=== PATIENT | female | born 1940 | race Caucasian/White ===

== ENCOUNTER → 2018-01-10 07:31 | Outpatient (CLI) | payer MEDICARE, BC ==
[2016-06-07 12:49] VITALS: BMI 21.0
[~2018-01-10 07:31] MED LIST: NORVASC2.5 MG; WELLBUTRIN75 MG
== END | disposition home or self-care (01) ==
LOC: D.RT 01-01 10:00 → D.RAD 01-01 11:00 → D.RT 07:31
DX: J44.9 Chronic obstructive pulmonary disease, unspecified (principal)

== ENCOUNTER → 2018-05-22 10:51 | Outpatient (CLI) | payer MEDICARE, BC ==
[2016-06-07 12:49] VITALS: BMI 21.0
== END | disposition home or self-care (01) ==
LOC: D.CT 10:51
DX: I73.9 Peripheral vascular disease, unspecified (principal)

== ENCOUNTER → 2018-06-24 09:31 | Outpatient (CLI) | payer MEDICARE, BC ==
[2016-06-07 12:49] VITALS: BMI 21.0
== END | disposition home or self-care (01) ==
LOC: D.US 09:31
DX: I65.23 Occlusion and stenosis of bilateral carotid arteries (principal)

== ENCOUNTER → 2018-07-10 07:13 | Outpatient (CLI) | payer MEDICARE, BC ==
[2016-06-07 12:49] VITALS: BMI 21.0
== END | disposition home or self-care (01) ==
LOC: D.CT 07:13
DX: I65.23 Occlusion and stenosis of bilateral carotid arteries (principal)

== ENCOUNTER 2018-08-20 14:17 | Inpatient (IN) | payer MEDICARE, BC ==
[~2018-08-20] VITALS: Ht 157.5 cm; Wt 58.6 kg
--- NOTE | ~2018-08-20 | HEMODYNAMI ---
PATIENT:SALAZAR TEJEDA MEDICAL RECORD: [id number] : 36 LOCATION:LO DEverCV01 ADMISSION DATE: 08/29/18 Generatedon:09/03/201815:44 Patient name: SALAZAR TEJEDA Patient #: [id number] SSN: : Date of study: 09/03/2018 Page: Of Hemodynamic Procedure Report Patient Data Patient Demographics Procedure consent was obtained First Name: SALAZAR Gender: Female Last Name: ILEANA : 1940 [facility] Initial: VIRGEN Age: 78 year(s) Patient #: [id number] Race: Unknown Additional ID: [id number] Contact details Address: [address] [place] [address] State: [place] City: [place] Zip code: [address] Past Medical History Allergies: No known allergies Admission Admission Data Admission Date: 08/29/2018 Admission Time: 5:00 Room #: [facility] Procedure Procedure Types Cath Procedure Peripheral Cath Diagnostic Procedure Abd/Extremity Extremities Procedure Description Procedure Date Procedure Date: 09/03/2018 Procedure Start Time: 14:21 Procedure Staff Name Function Romel Pavon RT Monitor Alf Hi MD Performing Physician Roopa Davis Scrub Jaylene Dixon RN Nurse Procedure Data Cath Procedure Fluoroscopy Diagnostic fluoroscopy Total fluoroscopy Time: time: 11.78 min 11.78 min Diagnostic fluoroscopy Total fluoroscopy dose: 67 dose: 67 mGy mGy Contrast Material Contrast Material Type Amount (ml) Isovue 300 65 Entry Location Entry Primary Successful Side Size Upsize Upsize Entry Closure Succes sful Closure Location (Fr) 1 (Fr) 2 (Fr) Remarks Device Remarks Femoral Left 6 Fr Exoseal artery Short Procedure Medications Medication Administration Route Dosage Heparin Flush Bag added to field 3 bags (1000units/500ml NS) Lidocaine 1% added to field 20 Oxygen etCO2 Nasal cannula 3 l/min Nitroglycerin IC/IA I.A. 200 mcg Heparin Bolus I.V. 2500 units Heparin Bolus I.V. 1000 units Hemodynamics Rest Heart Rate: 89 (bpm) Snapshots Pre Cath Intra NCS Post Cath Vital Signs Time Heart Resp SPO2 etCO2 NIBP (mmHg) Rhythm Pain Sedation Rate (ipm) (%) (mmHg) Status Level (bpm) 14:01:57 12 100 11.3 167/74(117) NSR 0 (11) 10(A) , No pain 14:06:13 92 24 100 9.7 151/70(115) NSR 0 (11) 10(A) , No pain 14:10:31 93 46 100 15 146/69(108) NSR 0 (11) 10(A) , No pain 14:14:49 88 19 99 27.8 135/60(102) NSR 0 (11) 10(A) , No pain 14:16:23 89 21 99 27.1 133/58(108) NSR 0 (11) 10(A) , No pain 14:20:37 88 29 99 28.6 135/61(97) NSR 0 (11) 10(A) , No pain 14:22:53 89 21 99 12.7 122/58(93) NSR 0 (11) 10(A) , No pain 14:25:02 88 23 99 24.8 133/58(95) NSR 0 (11) 10(A) , No pain 14:27:17 87 20 99 27.8 133/56(87) NSR 0 (11) 10(A) , No pain 14:29:32 86 25 99 27.1 124/58(94) NSR 0 (11) 10(A) , No pain 14:31:43 87 30 99 29.3 129/57(86) NSR 0 (11) 10(A) , No pain 14:33:58 88 23 98 31.6 121/54(87) NSR 0 (11) 10(A) , No pain 14:36:09 88 18 98 28.6 124/52(84) NSR 0 (11) 10(A) , No pain 14:38:22 89 19 98 29.3 122/53(93) NSR 0 (11) 10(A) , No pain 14:40:33 86 30 98 31.6 124/55(88) NSR 0 (11) 10(A) , No pain 14:42:47 88 36 98 30.1 122/53(90) NSR 0 (11) 10(A) , No pain 14:44:58 90 26 98 30.1 122/55(92) NSR 0 (11) 10(A) , No pain 14:47:11 87 41 97 31.6 116/53(87) NSR 0 (11) 10(A) , No pain 14:49:22 86 22 97 30.1 119/51(97) NSR 0 (11) 10(A) , No pain 14:51:35 84 20 96 33.1 106/46(86) NSR 0 (11) 10(A) , No pain 14:53:42 75 20 96 31.6 112/47(82) NSR 0 (11) 10(A) , No pain 14:55:53 85 20 96 33.9 121/48(88) NSR 0 (11) 10(A) , No pain 14:58:06 84 20 96 34.6 120/48(82) NSR 0 (11) 10(A) , No pain 15:00:17 83 20 96 36.1 114/51(70) NSR 0 (11) 10(A) , No pain 15:02:26 82 20 96 33.1 113/53(91) NSR 0 (11) 10(A) , No pain 15:04:38 88 23 97 29.3 112/48(78) NSR 0 (11) 10(A) , No pain 15:06:46 86 17 97 44.4 120/51(83) NSR 0 (11) 10(A) , No pain 15:08:58 80 20 97 28.6 104/50(83) NSR 0 (11) 10(A) , No pain 15:11:05 81 18 97 36.1 111/48(76) NSR 0 (11) 10(A) , No pain 15:13:12 81 19 97 31.6 104/52(77) NSR 0 (11) 10(A) , No pain 15:15:14 82 19 97 35.3 123/58(90) NSR 0 (11) 10(A) , No pain 15:17:28 81 18 96 36.1 115/51(86) NSR 0 (11) 10(A) , No pain 15:19:37 78 17 96 33.8 107/51(84) NSR 0 (11) 10(A) , No pain 15:21:46 80 17 96 34.6 105/46(83) NSR 0 (11) 10(A) , No pain 15:23:53 78 17 95 36.1 106/48(81) NSR 0 (11) 10(A) , No pain 15:26:00 77 19 95 31.6 103/46(85) NSR 0 (11) 10(A) , No pain 15:28:07 78 18 94 33.1 99/44(69) NSR 0 (11) 10(A) , No pain 15:30:12 76 18 95 33.8 101/46(76) NSR 0 (11) 10(A) , No pain 15:32:19 75 17 95 29.3 98/46(73) NSR 0 (11) 10(A) , No pain 15:34:23 76 18 95 32.3 103/48(75) NSR 0 (11) 10(A) , No pain 15:36:30 75 17 95 33.1 103/46(78) NSR 0 (11) 10(A) , No pain 15:38:35 80 20 96 35.3 104/50(83) NSR 0 (11) 10(A) , No pain 15:40:40 80 17 97 32.3 114/54(91) NSR 0 (11) 10(A) , No pain 15:42:49 84 14 94 0 127/58(99) NSR 0 (11) 10(A) , No pain Medications Time Medication Route Dose Verified Delivered Reason Notes Eff ectiveness by by 14:11:15 Heparin Flush added 3 Alf Milner used for Bag to bags Sussy Hi procedure (1000units/500ml field MD RESENDIZ NS) 14:11:25 Lidocaine 1% added 20ml Alf Milner for local to vial Sussy Hi anesthetic field MD RESENDIZ 14:11:40 Oxygen etCO2 3 Alf Mariee used for Nasal l/min Sussy Dixon RN procedure cannula 14:30:47 Heparin Bolus I.V. 2500 Alf Mariee units Sussy Dixon RN, MD 15:00:45 Nitroglycerin I.A. 200 Alf Milner Per IC/IA [facility] Sussy Hi physician MD RESENDIZ 15:01:19 Heparin Bolus I.V. 1000 Alf Aguileraody units Sussy Dixon RN, MD Procedure Log Time Note 13:50:57 Romel Pavon RT (R) (CV) sent for patient. Start room use. 13:50:57 Clark Laurent CAN TECHNICIAN here for Tiva 13:51:00 Time tracking: Regular hours (M-F 7:00 - 5:00) 13:51:05 Plan of Care:Hemodynamics will remain stable., Cardiac rhythm will remain stable., Comfort level will be maintained., Respiratory function will remain adequate., Patient/ family verbilizes understanding of procedure., Procedure tolerated without complication., Recovers from procedure without complications.. 13:52:59 Patient received from CVICU to IR Alert and oriented. Tansferred to table in Supine position. 13:53:04 Use device set IR Diagnostic 13:53:06 Tegaderm 4 x 4 (1626W) opened to sterile field. 13:53:06 Sterile Angiographic Pack opened to sterile field. 13:53:06 Bag Decanter (2002S) opened to sterile field. 13:53:15 Warm blankets applied, and michelle hugger turned on for patient comfort. 13:53:16 Correct patient and procedure confirmed by team. 13:53:27 Signed procedure consent form obtained from patient. 13:53:28 ECG and BP/O2 sat monitors applied to patient. 13:53:29 Full Disclosure recording started 13:53:30 - 13:53:34 H&P Date Dictated: 09/03/2018 Within 30 days and on chart.. 13:53:36 Pre-op teaching completed and patient verbalized understanding. 13:53:36 Pre-procedure instructions explained to patient. 13:53:38 Family in waiting room. 13:53:40 Patient NPO since Midnight. 13:54:07 - 13:54:23 SEE ANESTHESIA NOTE FOR PRE TIVA PROCEDURE 13:54:34 Left groin area was prepped with chlora-prep and draped in sterile fashion 13:54:35 Alarms reviewed by R. N. 13:54:36 Sharps counted by scrub and verified by R.N. 14:00:43 Vital chart was started 14:09:22 BENTSON 145cm wire ([id number]) opened to sterile field. 14:09:22 Cordis 6Fr BRITE TIP 11cm sheath opened to sterile field. 14:11:15 Heparin Flush Bag (1000units/500ml NS) 3 bags added to field was administered by Alf Hi MD; used for procedure; 14:11:25 Lidocaine 1% 20ml vial added to field was administered by Alf sweeney MD; for local anesthetic; 14:11:40 Oxygen 3 l/min etCO2 Nasal cannula was administered by Jaylene Dixon RN ; used for procedure; 14:13:38 Baseline sample Acquired. 14:19:15 Physician arrived 14:19:17 --------ALL STOP TIME OUT------ 14:19:18 Final Timeout: patient, procedure, and site verified with staff and physician. All members of the team are in agreement. 14:19:22 Left groin site verified by team. 14:19:51 Fire Safety Assessment: A--An alcohol-based skin anteseptic being used preoperatively., C--Open oxygen or nitrous oxide is being used. 14:19:56 Sedation plan: IV Moderate Sedation Medication:Propofol 14:21:43 Procedure started. 14:21:56 Local anesthetic to left femerol artery with Lidocaine 1% by Alf Hi MD.INITIAL ACCESS ONLY 14:21:58 Access obtained with 4Fr micropunture. 14:22:28 A 6 Fr Short sheath was inserted into the Left Femoral artery 14:22:34 Micropuncture VSI 4FR kit opened to sterile field. 14:22:35 Cordis 6Fr BRITE TIP 11cm sheath opened to sterile field. 14:30:00 CXI Catheter 90cm (K49005) opened to sterile field. 14:30:00 ROADRUNNER .035 145 glide wire ([id number]) opened to sterile field. 14:30:47 Heparin Bolus 2500 units I.V. was administered by Jaylene Dixon RN; ; 14:32:06 INFLATOR BasixTOUCH (CQ4033) opened to sterile field. 14:38:05 CHOICE PT Extra Support J 300cm guide wire ([id number]) opened to steril e field. 14:41:02 Hawkone Medium Atherectomy System (H1-M) opened to sterile field. 14:42:45 COPILOT Valve Control ([id number]) opened to sterile field. 14:50:47 Inflate balloon Inflation number: 1 A Gilchrist Plus 2 x 6 x 130 Balloon ([id number]) was prepped and advanced across the Undefined1, then inflated to 8 ABDIFATAH for 0:50 (min:sec). 15:00:45 Nitroglycerin IC/IA 200 mcg I.A. was administered by Alf Hi MD; Per physician; 15:01:19 Heparin Bolus 1000 units I.V. was administered by Jaylene Dixon RN; ; 15:15:19 Inflate balloon Inflation number: 1 A IN.PACT Admiral 5 x 120 x 130 DCB Balloon ([id number]) was prepped and advanced across the Distal Superficial Femoral, Left, then inflated to 9 ABDIFATAH for 2:42 (min:sec). 15:23:44 Inflate balloon Inflation number: 1 A CHOCOLATE 3.0 x 120 x 150 balloon ([id number]) was prepped and advanced across the Mid Anterior Tibial, Left1, then inflated to 9 ABDIFATAH for 1:24 (min:sec). 15:29:11 Sheath removed intact; hemostasis achieved with Exoseal to the Left Femoral artery. 15:29:14 Procedure ended.(Physican Out) 15:30:48 Fluoroscopy time 11.78 minutes. 15:30:54 Fluoroscopy dose: 67 mGy 15:30:54 Flurop Dose total: 67 15:34:05 SEE ANESTHESIA NOTE FOR POST PROCEDURE TIVA 15:36:27 Sharps counted by scrub and verified by R.N. 15:37:19 Contrast amount:Isovue 300 65ml. 15:37:21 Insertion/operative site no bleeding no hematoma. 15:37:26 Post-op/insertion site Left Femoral artery dressed using a 4 x 4 and Tegaderm. 15:37:30 Post left femerol artery:stable 15:37:36 Post procedure: left dorsailis pedis pulse Doppler. 15:38:24 Pre procedure: left dorsailis pedis pulse Doppler 15:38:33 Post procedure instruction explained to patient.Patient verbalizes understanding. 15:38:35 Procedure and supply charges have been captured, reviewed, submitted an d are correct. 15:43:03 Report given to ICU. 15:43:06 Patient transfered to ICU with Bed. 15:43:18 Full Disclosure recording stopped Intervention Summary Intervention Notes Time ActionType Lesion and Equipment Used Action# Pressure Duration Attributes 14:50:47 Inflate Undefined1 Gilchrist Plus 2 x 6 1 8 00:50 balloon x 130 Balloon ([id number]) 15:15:19 Inflate Distal IN.PACT Admiral 5 1 9 02:42 balloon Superficial x 120 x 130 DCB Femoral, Balloon Left ([id number]) 15:23:44 Inflate Mid CHOCOLATE 3.0 x 1 9 01:24 balloon Anterior 120 x 150 balloon Tibial, ([id number]) Left1 Device Usage Item Name Manufacture Quantity Catalog Number [facility] Minimal Lot# / Charge Number Stock Stock Serial# Code Bag Decanter Microtek 1 [id number] 06472 45927 0 5 () Medical Inc. Sterile Cardinal 1 [id number] 642425 69507 9 5 Angiographic Pack Health Tegaderm 4 x 4 3M 1 1626W 539915 324236 73652 9 5 (1626W) Cordis 6Fr BRITE Cardinal 2 [id number] 718191 63103 5 5 TIP 11cm sheath Health BENTSON 145cm wire [employer] [facility] 1 [id number] 276751 87980 0 5 ([id number]) Micropuncture VSI VSI VASCULAR 1 7266V 710127 65267 0 5 4FR kit [employer]UTIONS [facility] .035 [employer] [facility] 1 U24318 616963 589592 46327 6 5 [id number] 145 glide wire ([id number]) CXI Catheter 90cm [employer] [facility] 1 J64849 421538 451474 55319 1 5 [id number] ([id number]) INFLATOR Merit 1 RL8881 225507 146949 27801 8 5 [employer] ([id number]) CHOICE PT Extra [place] 1 [id number] 16189 7 5 [id number] Support J 300cm Scientific guide wire ([id number]) Hawkone Medium Medtronic 1 H1-M 227166 52823 990 5 Atherectomy System (H1-M) COPILOT Valve Wheeler 1 4774880 711861 447446 15173 1 5 Control (5409098) Vascular Gilchrist Plus 2 x 6 Medtronic 1 [id number] 856436 479797 59895 8 5 x 130 Balloon ([id number]) IN.PACT Admiral 5 Medtronic 1 [id number] 355446 926042 14596 7 5 [id number] x 120 x 130 DCB Balloon ([id number]) CHOCOLATE 3.0 x Medtronic 1 [id number] 977076 405716 59970 8 5 [id number] 120 x 150 balloon OTW [id number] ([id number]) [id number] Signature [place] [employer] Time Signature Unsigned Intra-Procedure 09/03/2018 Romel 3:44:35 PM [place] RT (R) (CV) Signatures Monitor : Romel Signature : [place] RT Date : Time : [address] [address]
[~2018-08-20 14:17] MED LIST changes: +BAYER CHEWABLE81 MG PO; +FISH OIL 1,0001 CA1 PO; +WELLBUTRIN XL150 M1 PO; -WELLBUTRIN75 MG
[2018-08-27] MEDS ORDERED: LOTREL 5/10 MG1 CAP (14:08)
[2018-08-27] MEDS ORDERED: AMLOD/BENAZEPRIL (14:09)
[2018-08-27] MEDS ORDERED: CENTRUM SILVER1 EAC3 PO (14:10)
[2018-08-27] MEDS ORDERED: MAGNESIUM OXID250 MG PO (14:10)
[2018-08-27] MEDS ORDERED: VITAMIN D31000 UNIT PO (14:11)
[2018-08-27] MEDS ORDERED: POTASSIUM99 M1 PO (14:11)
[2018-08-27 16:13] LABS: BASOPHILS 1.7 % (0-2); EOSINOPHILS 1.7 % (0-7); HEMATOCRIT 41.5 % (36.0-48.0); HEMOGLOBIN 13.6 g/dL (12-16); IMMATURE GRANULOCYTES 0.1 % (0-5); LYMPHOCYTES 34.4 % (15-50); MCH 29.2 pg (26.0-34.0); MCHC 32.8 g/dL (31.0-37.0); MCV 89.1 fL (80.0-100.0); MEAN PLATELET VOLUME 11.1 fL (7.4-10.4); NEUTROPHILS 44.1 % (40-80); PLATELET COUNT 270 10x3/uL (130-400); RBC 4.66 10x6/uL (4.00-5.40); RDW 14.4 % (11.5-14.5); WBC 7.2 10x3/uL (4.8-10.8)
[2018-08-27 16:22] LABS: INR 0.97 (0.85-1.17); PROTIME 12.4 SECONDS (11.6-15.0)
[2018-08-27 16:25] LABS: APPEARANCE CLEAR (CLEAR); BILIRUBIN NEGATIVE (NEGATIVE); COLOR YELLOW (YELLOW); GLUCOSE NEGATIVE (NEGATIVE); KETONE NEGATIVE (NEGATIVE); NITRITE NEGATIVE (NEGATIVE); PROTEIN NEGATIVE (NEGATIVE); UROBILINOGEN NORMAL (NORMAL)
[2018-08-27 16:26] LABS: AMORPHOUS SEDIMENT <1+ /lpf (NONE SEEN); BACTERIA MANY /hpf (NONE SEEN); EPITHELIAL CELLS 0-5 /hpf (0-5); MUCUS <1+ /lpf (NONE SEEN); RED CELLS - URINE RARE /hpf (0-5)
[2018-08-27 16:36] LABS: ALBUMIN 3.8 g/dL (3.4-5.0); ANION GAP 14.4 mmol/L (8-16); BILIRUBIN - TOTAL 0.2 mg/dL (0.2-1.3); CALCIUM 9.5 mg/dL (8.5-10.1); CARBON DIOXIDE 25.9 mmol/L (21.0-32.0); CREATININE - SERUM 0.9 mg/dL (0.6-1.3); POTASSIUM - SERUM 4.3 mmol/L (3.5-5.1); PROTEIN - SERUM 8.1 g/dL (6.4-8.2)
[2018-08-29] VITALS (46 sets, daily range): BP systolic 118–168; BP diastolic 30–77; BMI 20.3
--- NOTE | 2018-08-29 11:44 | NUR ---
RECIEVED FROM OR ACCOMPANIED BY OR TEAM-PLACED TO NASAL PRONGS 6L-PT AWAKE AND RESPONDS EASILY -RESP REG AND EVEN-ELZA GROINS DRG DRY AND INTACT -SOFT TO TOUCH-PEDAL PULSES WITH DOPPLER ONLY-ABP TO MONITOR-NOTED SYS 154-NTG AT 30ML/H-CLEVIPREX STARTED AND 2MG-FOR PARAMETER <140-DR DAN AT [facility]-PORT CXR COMPLETED FOR CENTRAL LINE PLACEMENT-FAMILY BROUGHT TO BEDSIDE
--- NOTE | 2018-08-29 19:00 | NUR ---
report recevied and assessment completed. see flowsheet for full details. vss. pedal pulses heard clearly with doppler though not palpable at this time. feet warm bilat. will monitor throughout shift.
--- NOTE | 2018-08-29 20:01 | MORECARE ---
CASE MANAGEMENT DISCHARGE SUMMARY PATIENT: SALAZAR TEJEDA UNIT: [id number] ADM DATE: 08/29/18 AGE: 78 : 38 SEX: F ROOM/BED: [facility] AUTHOR: PATTI EMMANUEL PHYSICIAN: REFERRING PHYSICIAN: DIMITRI DAN MD DATE OF SERVICE: 08/29/18 Discharge Plan Patient Name: SALAZAR TEJEDA [facility] [facility] 1940 Planned Disposition: Home Anticipated Discharge Date: Discharge Date: Expected LOS: Initial Reviewer: [email or web address] Initial Review Date: 08/29/2018 Generated: 08/29/18 9:00 pm DCPIA - Discharge Planning Initial Assessment Updated by [email or web address]: Nguyen Long on 08/29/18 7:59 pm * Is the patient Alert and Oriented? Yes * How many steps to enter\exit or inside your home? * PCP PARROT * Pharmacy [facility] - [facility] * Preadmission Environment Home Alone * ADLs Independent * Equipment None * List name and contact numbers for known caregivers / representatives who currently or will assist patient after discharge: HEIDI RUSSELL - [facility]- [phone] * Verbal permission to speak to the caregivers and representatives has been obtained from the patient. N/A * Community resources currently utilized None * Additional services required to return to the preadmission environment? No * Can the patient safely return to the preadmission environment? Yes * Has this patient been hospitalized within the prior 30 days at any hospital? No Patient Name: SALAZAR TEJEDA Page 97977 at 2001 All edits/amendments must be made on the electronic document DICTATION DATE: 08/29/181999 HEADSTART TEACHER: ALEYDA 08/29/181999 RPT#: [id number] DC DATE: STATUS: ADM IN [facility] [address] [place] [address] END OF REPORT
--- NOTE | 2018-08-29 20:08 | MORECARE ---
CASE MANAGEMENT DISCHARGE SUMMARY PATIENT: SALAZAR TEJEDA UNIT: [id number] ADM DATE: 08/29/18 AGE: 78 : 38 SEX: F ROOM/BED: [facility] AUTHOR: LIEN,DOC PHYSICIAN: REFERRING PHYSICIAN: DIMITRI DAN MD DATE OF SERVICE: 08/29/18 Discharge Plan Patient Name: SALAZAR TEJEDA Facility: [facility]:[place] : 1940 Planned Disposition: Home Anticipated Discharge Date: Discharge Date: Expected LOS: Initial Reviewer: [email or web address] Initial Review Date: 08/29/2018 Generated: 08/29/18 9:08 pm Comments DCP- Discharge Planning Updated by [email or web address]: Nguyen Long on 08/29/18 7:[address] Patient Name: SALAZAR TEJEDA Admission Status: Elective Accout number: [id number] Admission Date: 08-29-2018 : 1940 Admission Diagnosis: Attending: DIMITRI DAN Current LOS: 1 Anticipated DC Date: Planned Disposition: Home Primary Insurance: MEDICARE A & B Discharge Planning Comments: CM met with patient at bedside. Patient states she live at home alone and plans to return to her home upon discharge. Patient denies any discharge needs at this time. CM will continue to follow and assist as needed with discharge planning / needs. Engine Designer: Nguyen Long DCPIA - Discharge Planning Initial Assessment Updated by [email or web address]: Nguyen Long on 08/29/18 7:59 pm * Is the patient Alert and Oriented? Yes * How many steps to enter\exit or inside your home? * PCP PARROT * Pharmacy [facility] - [facility] * Preadmission Environment Home Alone * ADLs Independent * Equipment None * List name and contact numbers for known caregivers / representatives who currently or will assist patient after discharge: HEIDI RUSSELL - DAUGHTER- [phone] * Verbal permission to speak to the caregivers and representatives has been obtained from the patient. N/A * Community resources currently utilized None * Additional services required to return to the preadmission environment? No * Can the patient safely return to the preadmission environment? Yes * Has this patient been hospitalized within the prior 30 days at any hospital? No Last DP export: 08/29/18 7:00 pm Patient Name: SALAZAR TEJEDA Page 50519 at 2008 All edits/amendments must be made on the electronic document DICTATION DATE: 08/29/182006 LATHING SUPERVISOR: ALEYDA 08/29/182006 RPT#: [id number] DC DATE: STATUS: ADM IN [facility] [address] [place] [address] END OF REPORT
--- NOTE | 2018-08-29 23:22 | NUR ---
reassessment completed. will contnue to titrate medications as tolerated.
[2018-08-30] VITALS (70 sets, daily range): BP systolic 104–165; BP diastolic 38–92; BMI 21.5
--- NOTE | 2018-08-30 04:00 | NUR ---
PT APPEARS TO BE BECOMING LESS ORIENTED. WILL CONTINUE TO ASSESS.
[2018-08-30 06:04] LABS: HEMATOCRIT 29.5 % (36.0-48.0); HEMOGLOBIN 9.5 g/dL (12-16); MCH 28.6 pg (26.0-34.0); MCHC 32.2 g/dL (31.0-37.0); MCV 88.9 fL (80.0-100.0); MEAN PLATELET VOLUME 10.5 fL (7.4-10.4); RBC 3.32 10x6/uL (4.00-5.40); RDW 14.4 % (11.5-14.5); WBC 13.3 10x3/uL (4.8-10.8)
[2018-08-30 06:28] LABS: CALC OSMOLALITY 267 mosm/kg (275-300); CALCIUM 7.7 mg/dL (8.5-10.1); CARBON DIOXIDE 23.1 mmol/L (21.0-32.0); CHLORIDE - SERUM 101 mmol/L (98-107); CREATININE - SERUM 0.7 mg/dL (0.6-1.3); GLUCOSE 110 mg/dL (74-106); POTASSIUM - SERUM 3.7 mmol/L (3.5-5.1); SODIUM 134 mmol/L (136-145); UREA NITROGEN 11 mg/dL (7-18); eGFR NON AFRICAN AMERICAN 85 mL/min (90-120)
--- NOTE | 2018-08-30 10:57 | NUR ---
0715-RECIEVED AWAKE AND ALERT-SITTING UP IN CHAIR-PULSES TO FEET WITH DOPPLER-POSSIBLE FAINT PALPATE R PEDAL-WARM TO TOUCH -PT STATED USUALLY COLD FEET-STATES LOWER BACK AND CATHETER HURTING 829-RETURNED PT TO BED PER REQUEST AND SCD'S PLACED-R RADIAL RUSTAM IN PLACE- CLEVIPREX INFUSING 1000-FAMILY AT BEDSIDE AND REQUESTING ADDITIONAL HOSPITAL DAY-ENCOURAGED TO REMAIN PRESENT TO DISCUSS WITH DR DAN
--- NOTE | 2018-08-30 12:29 | OP ---
PATIENT NAME: SALAZAR TEJEDA MEDICAL RECORD: [id number] :36 LOCATION:D.CVI D.CV01 ADMISSION DATE:08/29/18 SURGEON: DIMITRI DAN MD DATE OF OPERATION: 08/29/2018 SURGEON: Dimitri Dan MD NEWS CLERK: Dr. Muñoz. ANESTHESIA: General endotracheal, Dr. Montalvo. OPERATION PERFORMED: 1. Endovascular stent repair of abdominal aortic aneurysm. 2. Open exposure right common femoral artery. 3. Percutaneous closure of the left common femoral artery. 4. Endovascular stent repair with deployment of an aortobiiliac endograft. 5. Repair of right common femoral artery. PREOPERATIVE DIAGNOSIS: Large abdominal aortic aneurysm. POSTOPERATIVE DIAGNOSIS: Large abdominal aortic aneurysm. INDICATION FOR OPERATION: Large abdominal aortic aneurysm. FINDINGS OF THE OPERATION: Large abdominal aortic aneurysm. FLUOROSCOPY TIME: 37 minutes 53 seconds. Contrast is 205 mL. Aortogram demonstrated the anatomy of the aorta as well as the large aneurysm and tight constriction of the distal aorta and iliacs. Post-procedure, there was no endoleak and good position of the stent graft. DESCRIPTION OF PROCEDURE: After informed consent, adequate preoperative medication evaluation, the patient was brought to the operating room, placed on table in supine position. After induction of general endotracheal anesthesia, application of appropriate monitoring devices, the patient was prepped and draped in sterile field, utilizing Betadine scrub, alcohol, and Betadine solution. A Betadine-impregnated drape was also used. Dr. Muñoz assisted in all portions of the procedure by manipulating wires, catheters, and devices. An incision was made above the inguinal ligament on the right and dissection carried down the fascia. Hemostasis maintained with electrocautery. The distal iliac and proximal common femoral artery were controlled with vessel loops. Percutaneous approach was used on the left. A micropuncture technique was used with good placement of the 4-Barbadian. This was exchanged for a 7-Barbadian catheter. A 7-Barbadian catheter was placed in the right distal iliac artery as well utilizing fluoroscopy. A Glidewire was passed into the distal thoracic aorta and exchange made for a stiff wire and aortogram was performed from the contralateral side and measurements made and the vessels identified. The exchange was made on the right for an Endologix sheath 19-Barbadian. The contralateral wire was snared from the left utilizing a snare. The device was attached through the sheath and the aortobifemoral graft deployed. The contralateral side was deployed. A pigtail catheter was used to exchange from the left. The ipsilateral side was then deployed and aortogram performed OPERATIVE REPORT [id number] SALAZAR TEJEDA marking the renal arteries. The cuff was placed and the iliac limbs dilated with a 10-Barbadian balloon bilaterally to allow access. A cuff was then deployed just below the renal arteries and aortogram was performed. The anatomy changed with removal of the stiff wire and a second cuff was placed. A coated balloon was used to expand the proximal part of the graft and a 10-Barbadian noncompliant balloon used in the distal aorta and proximal iliac limbs. A repeat aortogram was performed that demonstrated good deployment of the device and no endoleak. The catheters, wires and sheaths were removed and the right common femoral artery repaired in 2 layers utilizing 6-0 Prolene suture. All maneuvers to remove trapped air were performed. There was good flow by Doppler. The patient was then given a calculated dose of protamine to reverse the heparin that was given as the first sheath was placed. An 8-Barbadian Angio-Seal was deployed on the left with good hemostasis. The right iliac incision was irrigated with copious amounts of antibiotic solution and normal saline. Instrument count and sponge counts were correct times 2. The wound was closed in layers utilizing 2-0 Vicryl on deep subcutaneous tissue, 3-0 Vicryl on the superficial subcutaneous tissue, and skin approximated with 5-0 subcuticular Monocryl. Sterile dressings were applied. The patient tolerated the procedure well and was transferred to the CV ICU in satisfactory condition. TRANSINT:[id number] Voice Confirmation ID: [id number] DOCUMENT ID: [id number] DIMITRI DAN MD at 1229 CC: [id number] DICTATION DATE: 08/29/18 1140 AUTOMATION SPECIALIST: 08/29/18 1238 [place] [address]
--- NOTE | 2018-08-30 18:08 | NUR ---
1130-DR DAN AT BEDSIDE-SPOKE WITH PT-SCD'S REMOVED-C/O OF L CALF PAIN-STATED PRESENT BEFORE SURGERY AND INCREASING IN INTENSITY-L PPWITH DOPPLER-FOOT HOT TO TOUCH-NOTED BALL OF FOOT COLD RUSTAM D/C'D PER PROTOCOL-R FOREARM IV D/C'D PER PROTOCOL-MOORE CATH D/C'D PER PROTOCOL-TIP INTACT AND TOLERATED WELL BY PT-GIVEN MEDIUM DEPENDS AT PT REQUEST-STATED INCONTINENCE OCCURS CLEVIPREX TITRATED OFF-NTG REMAINS AT 30ML/H 1500-PT AMBULATED EASILY WITH PHYSICAL THERAPY-REQUIRED O2 AT 4L-NOTED DECREASED ON R/A TO 83%-RARE PRODUCTIVE COUGH 1600-AMBULATED TO RESTROOM TOLERATED WELL-REFUSED SCD'S STATED L CALF PAIN INCREASES WITH SAME-NTG TITRATED OFF REGULAR DIET ORDERED 1700-MORPHINE CONTINUOUS PROCESS ROTARY DRUM TANNER D/C'D -L IV SALINE LOCKED DAUGHTERS REMAIN AT [facility]
--- NOTE | 2018-08-30 21:00 | NUR ---
PT B/P ELEVATED CHECKED ON BOTH ARMS MULTIPLE TIMES. NITRO STARTED PER ORDERS. ABLE TO TITRATE OFF VERY QUICKLY.
--- NOTE | 2018-08-30 23:00 | NUR ---
REASSESSMENT COMPLETED. SEE FLOWSHEET FOR FULL DETAILS. VSS.
[2018-08-31] VITALS (22 sets, daily range): BP systolic 100–157; BP diastolic 40–80
--- NOTE | 2018-08-31 03:00 | NUR ---
REASSESSMENT COMPLETED. SEE FLOWSHEET FOR FULL DETAILS.
--- NOTE | 2018-08-31 06:10 | NUR ---
PT C/O PAIN. PRN MEDICATION GIVEN. VSS. WILL MONITOR
--- NOTE | 2018-08-31 14:37 | NUR ---
0715-RECIEVED AWAKE AND ALERT-GUARDING R LEG-SPECIFIES LOWER CALF AND ANKLE/TOP OF FOOT-04/30 0800-ATTEMPTED TO AMBULATE TO RESTROOM-NOT ABLE WITH WALKER-PT ATTEMPTED TO HOP WITH USE OF WALKER-STOPPED AND BROUGHT BEDSDIE COMMODE-CONTINUES TO GUARD L FOOT 0835-DOPPLER PULSE TO JUNCTION OF LARGE TOE TO NEXT-ABLE TO HEAR VENOUS FLOW IN POPLITEAL AREA AND LATERALCALF-NO EDEMA--O2 SAT 99-REMOVED O2- 899-O2 83% O2
--- NOTE | 2018-08-31 14:53 | NUR ---
1100-INCENTIVE SPIROMETRY DONE WITH PT AND FAMILY ENCOURAGED-1000ML- 1245-DR DAN AT [facility] AND REVIEWED PT CONCERN WITH FAMILY AND PT-ORDER RECIEVED AND NOTED
--- NOTE | 2018-08-31 17:38 | NUR ---
1430-XRAY REPORT RELAYED TO DR DAN ORDER RECIVED AND NOTED-CONSULT PLACED FOR DR BENJAMIN ORTHOPEDICS/FAMILY REQUEST FOR Saturday-PT CONTINUED GUARDED TO L LEG-ANKLE TO MID CALF-STATES DOESNT HURT IF NOT TOUCHED-DAUGHTER PLACED SOCK ON FOOT REQUESTED BY PT -PT FLINCHED AND STATED STRONG PAIN"YOU'RE HURTING ME' 0-AM CARE DONE BY FAMILY
--- NOTE | 2018-08-31 19:40 | NUR ---
PT AWAKE AND ALERT. DAUGHTER AT BEDSIDE. PT C/O LEFT FOOT/LEG PAIN, VERY SENSITIVE TO TOUCH. R GROIN DRSG CDI. PERIPHERAL PULSES PALPABLE. GIVEN PAIN TABLET PER REQUEST.
[2018-09-01] VITALS (52 sets, daily range): BP systolic 106–159; BP diastolic 31–88; Ht 157.5 cm; Wt 58.6 kg
--- NOTE | 2018-09-01 04:00 | NUR ---
PT ASSISTED TO RESTROOM. SHE IS WALKING A BETTER THAN EARLIER AND IS BEARING SOME WEIGHT ON HER LEFT FOOT.
[2018-09-01 06:36] LABS: HEMATOCRIT 22.3 % (36.0-48.0); MCH 28.3 pg (26.0-34.0); MCHC 32.3 g/dL (31.0-37.0); MCV 87.8 fL (80.0-100.0); MEAN PLATELET VOLUME 10.4 fL (7.4-10.4); RBC 2.54 10x6/uL (4.00-5.40); RDW 14.2 % (11.5-14.5); WBC 11.5 10x3/uL (4.8-10.8)
[2018-09-01 06:47] LABS: ALBUMIN 2.3 g/dL (3.4-5.0); ALKALINE PHOSPHATASE 45 U/L (46-116); ALT (SGPT) 36 U/L (10-68); BILIRUBIN - TOTAL 0.32 mg/dL (0.2-1.3); CALC OSMOLALITY 269 mosm/kg (275-300); CARBON DIOXIDE 27.7 mmol/L (21.0-32.0); CHLORIDE - SERUM 100 mmol/L (98-107); CREATININE - SERUM 0.7 mg/dL (0.6-1.3); GLUCOSE 117 mg/dL (74-106); POTASSIUM - SERUM 3.6 mmol/L (3.5-5.1); PROTEIN - SERUM 5.7 g/dL (6.4-8.2); SODIUM 135 mmol/L (136-145); UREA NITROGEN 11 mg/dL (7-18); eGFR NON AFRICAN AMERICAN 85 mL/min (90-120)
[2018-09-01 07:25] LABS: HEMOGLOBIN 7.2 g/dL (12-16)
--- NOTE | 2018-09-01 07:40 | NUR ---
DEZ BECERRIL APN WITH DR BENJAMIN NOTIFIED OF CONSULT FOR LEFT ANKLE PAIN.
--- NOTE | 2018-09-01 07:40 | NUR ---
TAMIKO BECERRIL WITH DR BENJAMIN OFFICE NOTIFIED OF CONSULT.
--- NOTE | 2018-09-01 09:15 | NUR ---
AHA diet with 50% intake of breakfast today Pt reports no appetite Pt is constipated Pt has some nausea but no vomiting Pt does not tolerate Ensure Weight documented as 122lb Discussed the importance of nutrition to help maintain strength while in the hospital. Pt agreed to try and eat more. Will trial Mighty Shake for lunch. Encouraged protein RD following
--- NOTE | 2018-09-01 09:26 | NUR ---
XRAY AT BEDSIDE
[2018-09-01 09:34] LABS: BASOPHILS 0.2 % (0-2); EOSINOPHILS 0.2 % (0-7); HEMATOCRIT 21.2 % (36.0-48.0); IMMATURE GRANULOCYTES 0.3 % (0-5); MCH 28.8 pg (26.0-34.0); MCHC 32.5 g/dL (31.0-37.0); MCV 88.3 fL (80.0-100.0); MEAN PLATELET VOLUME 10.6 fL (7.4-10.4); MONOCYTES 12.1 % (2-11); NEUTROPHILS 76.2 % (40-80); PLATELET COUNT 143 10x3/uL (130-400); RDW 14.1 % (11.5-14.5); WBC 11.8 10x3/uL (4.8-10.8)
--- NOTE | 2018-09-01 09:40 | NUR ---
DR DAN NOTIFIED OF CRITICAL HGB.
[2018-09-01 09:44] LABS: HEMOGLOBIN 6.9 g/dL (12-16)
--- NOTE | 2018-09-01 09:59 | NUR ---
DR DAN IN TO SEE PATIENT. DOPPLER LEFT FOOT. AUDIBLE PULSE.
--- NOTE | 2018-09-01 10:13 | NUR ---
PT OFF UNIT TO IMAGING
--- NOTE | 2018-09-01 10:44 | NUR ---
PT RETURNED FROM IMAGING. NEEDED TO URINATE. ASSISTED UP TO TOILET. USED WALKER. PT ABLE TO BEAR WEIGHT FLAT FOOT. "HOPPED" ON RIGHT FOOT X2 TO AVOID FULL WEIGHT ON FOOT, AND THEN STARTED ONLY TO WALK ON BALL OF FOOT FOR 2 STEPS BEFORE WALKING WITH ENTIRE FOOT. GAIT WAS STEADY ONCE USED FULL SURFACE TO WALK ON WITH USE OF WALKER. NO DIFFICULTY RETURNING TO BED.
--- NOTE | 2018-09-01 11:29 | NUR ---
FIRST UNIT PRBC STARTED.
--- NOTE | 2018-09-01 13:56 | NUR ---
2ND PRBC COMPLETE. PT ASSISTED UP TO TOILET.
[2018-09-01 15:06] LABS: INR 1.08 (0.85-1.17); PROTIME 13.5 SECONDS (11.6-15.0)
[2018-09-01 15:33] LABS: MCH 28.2 pg (26.0-34.0); MCHC 33.2 g/dL (31.0-37.0); MEAN PLATELET VOLUME 10.8 fL (7.4-10.4); RDW 15.8 % (11.5-14.5); WBC 14.7 10x3/uL (4.8-10.8)
[2018-09-01 15:35] LABS: HEMATOCRIT 31.3 % (36.0-48.0); HEMOGLOBIN 10.4 g/dL (12-16); MCV 84.8 fL (80.0-100.0); RBC 3.69 10x6/uL (4.00-5.40)
--- NOTE | 2018-09-01 16:58 | NUR ---
LAB AT BEDSIDE. BLOOD DRAWN FOR NEW CROSSMATCH. NEW BAND PLACED ON PATIENT.
--- NOTE | 2018-09-01 17:22 | NUR ---
PT PULSES LEFT FOOT VERIFIED BY DOPPLER FOR POSTERIOR TIBIAL AND DORSALIS PEDIS.
--- NOTE | 2018-09-01 17:22 | NUR ---
NITRO GTT STARTED TO KEEP SBP UNDER 140.
--- NOTE | 2018-09-01 19:30 | NUR ---
AWAKE AND ALERT. ASSESSMENT COMLPETE. PERIPHERAL PULSES PALPPABLE. L FOOT PULSES EASILY DOPPERABLE. FEET ARE WARM TO TOUCH. NITRO GTT BEING TITRATED TO KEEP SBP < 140.
--- NOTE | 2018-09-01 20:30 | NUR ---
DAUGHTER AT BEDSIDE. ASSISTED PT TO BATHROOM AND HELPED HER CLEAN UP. DENIES NEEDS OR HELP.
[2018-09-01 22:45] LABS: HEMATOCRIT 28.2 % (36.0-48.0); HEMOGLOBIN 9.4 g/dL (12-16)
[2018-09-02] VITALS (77 sets, daily range): BP systolic 94–154; BP diastolic 29–86
[2018-09-02 06:58] LABS: HEMATOCRIT 28.2 % (36.0-48.0); HEMOGLOBIN 9.2 g/dL (12-16)
--- NOTE | 2018-09-02 09:20 | NUR ---
PT ASSISTED WITH MINIMAL HELP UP TO BEDSIDE TOILET. URINATED. PT PROVIDED OWN JULIET-CARE AND ASSISTED WITH CLEAN BRIEF.
--- NOTE | 2018-09-02 11:50 | NUR ---
PT UP IN CHAIR AT BEDSIDE. WAS ASSISTED BY PHYSICAL THERAPIST. LUNCH TRAY PROVIDED. DENIES ANY ADDITIONAL NEEDS.
[2018-09-02 14:38] LABS: HEMATOCRIT 28.4 % (36.0-48.0); HEMOGLOBIN 9.3 g/dL (12-16)
[2018-09-02 14:49] LABS: ANION GAP 8.8 mmol/L (8-16); CALCIUM 8.2 mg/dL (8.5-10.1); CARBON DIOXIDE 33.6 mmol/L (21.0-32.0); CREATININE - SERUM 0.8 mg/dL (0.6-1.3); POTASSIUM - SERUM 3.4 mmol/L (3.5-5.1)
--- NOTE | 2018-09-02 15:08 | NUR ---
PT ASSISTED UP TO BEDSIDE COMMODE. URINATED ONLY. ASSISTED BACK TO BED. PULSES CHECKED. POSTERIOR PEDAL OF LEFT FOOT MORE FAINT THAN PREVIOUS CHECK. DR DAN NURSE NOTIFIED WHILE SHE WAS ON UNIT.
--- NOTE | 2018-09-02 18:04 | NUR ---
DAUGHTER HAS BEEN AT BEDSIDE FOR VISITATION. FULL BATH AND HAIR WASH PROVIDED. NEW LINENS. LEFT PEDAL PULSE CONFIRMED VIA DOPPLER. FAINTLY AUDIBLE. PAIN MEDICATION PROVIDED REQUESTED.
--- NOTE | 2018-09-02 19:30 | NUR ---
DAUGHTER AT BEDSIDE. PEDAL PULSES DOPPLERABLE. DENIES NEEDS AT THIS TIME.
--- NOTE | 2018-09-02 21:00 | NUR ---
ASSISTED TO BEDSIDE COMMODE BY HER DAUGHTER. REQUESTING A PAIN TABLET AFTER SHE GOES TO BED.
--- NOTE | 2018-09-02 21:50 | NUR ---
PT IS BACK TO BED. PERIPHERAL PULSES REMAIN UNCHANGED. GIVEN STOOL SOFTENERS AND PAIN TABLET PO. NITRO GTT CONTINUES TO INFUSE TO KEEP SBP < 140. PT UNDERSTANDS THAT SHE IS NPO AFTER MIDNIGHT.
[2018-09-02 23:22] LABS: HEMATOCRIT 27.2 % (36.0-48.0); HEMOGLOBIN 8.8 g/dL (12-16)
[2018-09-03] VITALS (76 sets, daily range): BP systolic 104–152; BP diastolic 38–66
[2018-09-03 06:57] LABS: HEMATOCRIT 27.8 % (36.0-48.0); MCH 27.9 pg (26.0-34.0); MCHC 32.4 g/dL (31.0-37.0); MCV 86.1 fL (80.0-100.0); MEAN PLATELET VOLUME 9.7 fL (7.4-10.4); RBC 3.23 10x6/uL (4.00-5.40); RDW 15.7 % (11.5-14.5)
[2018-09-03 07:11] LABS: CALC OSMOLALITY 272 mosm/kg (275-300); CALCIUM 8.7 mg/dL (8.5-10.1); CARBON DIOXIDE 30.9 mmol/L (21.0-32.0); CHLORIDE - SERUM 99 mmol/L (98-107); CREATININE - SERUM 0.7 mg/dL (0.6-1.3); GLUCOSE 114 mg/dL (74-106); POTASSIUM - SERUM 3.5 mmol/L (3.5-5.1); SODIUM 136 mmol/L (136-145); UREA NITROGEN 12 mg/dL (7-18); eGFR NON AFRICAN AMERICAN 85 mL/min (90-120)
[2018-09-03 07:23] LABS: WBC 10.1 10x3/uL (4.8-10.8)
--- NOTE | 2018-09-03 07:53 | NUR ---
SHIFT ASSESSMENT COMPLETE. PT AWAKE AND CONVERSANT. LEFT PEDAL PULSES CHECKED VIA DOPPLER. VERIFIED PRESENCE. PT NPO. AWAITING FURTHER INSTRUCTION FROM PHYSICIANS.
[2018-09-03 09:04] LABS: HEMATOCRIT 27.5 % (36.0-48.0); HEMOGLOBIN 8.9 g/dL (12-16)
--- NOTE | 2018-09-03 10:06 | NUR ---
Nutrition Follow Up: Chart reviewed. Pt is NPO for AFRO today but previously was eating 43% meal avg on a regular diet. BM: 08/31/18 Labs reviewed Meds noted including Lasix, Reglan Rec resuming diet when medically feasible. RD following.
--- NOTE | 2018-09-03 11:45 | NUR ---
DR ALEJO BY TO SEE PATIENT. BROUGHT DAUGHTERS TO BEDSIDE.
--- NOTE | 2018-09-03 12:10 | NUR ---
PT ASKING TO HAVE PAIN MEDICATION. IS CURRENTLY NPO FOR PROCEDURE. MESSAGE LEFT WITH RONALD IN READING ROOM. SHE IS CONTACTING HIM FOR FURTHER INSTRUCTION.
--- NOTE | 2018-09-03 12:55 | NUR ---
SPOKE WITH ELENITA WITH DR ALEJO OFFICE. ONE TIME ORDER FOR MORPHINE 2MG IV RECEIVED. MAY REPEAT X1 IF NEEDED.
--- NOTE | 2018-09-03 13:54 | NUR ---
PT OFF UNIT TO I.R.
--- NOTE | 2018-09-03 16:03 | NUR ---
PT RETURNED TO ROOM AND PLACED ON BEDSIDE MONITORING. ASSESSMENT COMPLETE. PT HAS PALPABLE DORSALIS PEDIS. POSTERIOR TIBIAL HEARD VIA DOPPLER. PT COMMENTS FOOT NOT TENDER NOW. DAUGHTER AT BEDSIDE.
[2018-09-03 16:44] LABS: HEMATOCRIT 26.9 % (36.0-48.0); HEMOGLOBIN 8.8 g/dL (12-16)
--- NOTE | 2018-09-03 17:03 | NUR ---
MOORE CATHETER PLACED ORDERED USING STERILE TECHNIQUE. DO DIFFICULTY. PLASMALYTE AND HEPARIN GTT STARTED. PT REMAINS FLAT. LEFT GROIN DRESSING REMAINS C,D,I. SITE SOFT. NON-TENDER.
--- NOTE | 2018-09-03 19:45 | NUR ---
CENTRAL LINE DRESSING NOT CHANGED DURING MY AM SHIFT. LET ONCOMING NURSE JAVIER KNOW HAS NOT BEEN CHANGED AND NEEDS TO BE.
--- NOTE | 2018-09-03 21:00 | NUR ---
1899 REPORT RECEIVED CARE ASSUMED. PT LAYING IN BED RESTING. VSS. ASSESSMENT DONE SEE FLOW SHEET. NO SIGNS OF ACUTE DISTRESS NOTED. BILATERAL LOWER EXTREMITIES PULSES DOPPLERED. WILL CONTINUE TO MONITOR. HOB FLAT. 2100 MEDS GIVEN PER SEP. LABS DRAWN. VSS. NO DIFFICULTY SWALLOWING NOTED. 2129 LABS REVIEWED. REDRAW Q6HRS. WILL CONTINUE TO MONITOR.
[2018-09-03 21:03] LABS: HEMATOCRIT 30.9 % (36.0-48.0); HEMOGLOBIN 10.2 g/dL (12-16)
--- NOTE | 2018-09-03 23:00 | NUR ---
REASSESSMENT DONE SEE FLOW SHEET. VSS. NO SIGNS OF ACUTE DISTRESS NOTED WILL CONTINUE TO MONITOR.
[2018-09-04] VITALS (78 sets, daily range): BP systolic 108–148; BP diastolic 41–86
--- NOTE | 2018-09-04 03:00 | NUR ---
0100 WATER PROVIDED PER PT REQUEST. VSS. 0300 LABS DRAWN. REASSESSMENT DONE SEEE FLOW SHEET. VSS.
[2018-09-04 03:02] LABS: HEMATOCRIT 30.4 % (36.0-48.0); HEMOGLOBIN 10.1 g/dL (12-16)
--- NOTE | 2018-09-04 05:00 | NUR ---
0315 NC APPLIED. PT DESATS WITH MOVEMENT. NC 2LPM. VSS. 0530 LABS DRAWN. VSS. NO SIGNS OF ACUTE DISTRESS NOTED WILL CONTINUE TO MONITOR.
[2018-09-04 05:52] LABS: HEMATOCRIT 30.6 % (36.0-48.0); MCH 28.1 pg (26.0-34.0); MCHC 32.7 g/dL (31.0-37.0); MEAN PLATELET VOLUME 9.9 fL (7.4-10.4); RBC 3.56 10x6/uL (4.00-5.40); RDW 15.4 % (11.5-14.5); WBC 11.4 10x3/uL (4.8-10.8)
[2018-09-04 06:10] LABS: CALC OSMOLALITY 270 mosm/kg (275-300); CARBON DIOXIDE 29.4 mmol/L (21.0-32.0); CHLORIDE - SERUM 98 mmol/L (98-107); CREATININE - SERUM 0.7 mg/dL (0.6-1.3); GLUCOSE 114 mg/dL (74-106); POTASSIUM - SERUM 3.6 mmol/L (3.5-5.1); SODIUM 136 mmol/L (136-145); UREA NITROGEN 8 mg/dL (7-18); eGFR NON AFRICAN AMERICAN 85 mL/min (90-120)
--- NOTE | 2018-09-04 07:00 | NUR ---
REPORT RECEVIED FROM THE OFF GOING RN. SEE ASSESSMENT IN THE PTS FLOW SHEET. PT LYING IN BED. PT DENIES PAIN AT THIS TIME. NSR ON THE MONITOR. NITRO, CLEVIPREX HEPARIN AND PLASMALYTE IN FUSING TO RIGHT SUB CLAVIAN CVL. DRESSING C/D/I. FC NOTED. BILATERAL GROIN DRESSING C/D/I. BILATERAL DOSALIS PEDIS AND POST TIBIAL PULSES DOPPLERABLE. BLE WARM TO THE TOUCH AND COLOR WNL. BREAKFAST TRAY PROVIDED FOR THE PT. CALL LIGHT IN REACH. WILL CONT POC.
--- NOTE | 2018-09-04 09:00 | NUR ---
AM MEDS GIVEN WITH NO ISSUES.
--- NOTE | 2018-09-04 09:08 | NUR ---
LAB CALLED FOR NEEDING PTT.
[2018-09-04 09:32] LABS: HEMATOCRIT 31.4 % (36.0-48.0); HEMOGLOBIN 10.6 g/dL (12-16)
--- NOTE | 2018-09-04 09:32 | NUR ---
PULSES REMAIN UNCHANGED. DOPPLERABLE AND BLE WARM TO TOUCH. PTT RESULTS PENDING.
--- NOTE | 2018-09-04 10:16 | NUR ---
HEPARIN INCREASED BY 100 PER ORDRES. SEE HEPARIN/IV FLOW SHEET.
--- NOTE | 2018-09-04 12:00 | NUR ---
PT DENIES WEARING O2 AT THE HOUSE. O2 REMOVED. PT NOW RA.
--- NOTE | 2018-09-04 12:10 | NUR ---
IR AND DR SY ABERNATHY FOR THE PT TO GET OOB TO AMBULATE. WILL ASSIST OOB
[2018-09-04 12:26] LABS: HEMATOCRIT 31.4 % (36.0-48.0); HEMOGLOBIN 10.5 g/dL (12-16)
--- NOTE | 2018-09-04 12:51 | NUR ---
HEPARIN DC'D PER ORDERS.
--- NOTE | 2018-09-04 13:50 | NUR ---
PT UP AMBULATING WITH PHSYCIAL THERAPY. SLOW STEADY GAIT. WALKED WITH A ROLLING WALKER. PHYSCIAL THEARPY THEN ASSISTED HER TO HER BEDSIDE CHAIR. VSS. CALL LIGHT IN REACH. WILL CONT POC.
--- NOTE | 2018-09-04 17:00 | NUR ---
HAM PASSER IN THE PTS ROOM.
--- NOTE | 2018-09-04 17:30 | NUR ---
DR DAN IN THE PTS ROOM. WITH THE ULTRA SOUND TECH. READY PT FOR STAT CLOSURE OF FALSE ANEURYSM. CONSENT FOR PROCEDURE AND ANESTESIA SIGNED BY THE PT.
--- NOTE | 2018-09-04 18:52 | NUR ---
PT OFF FLOOR VIA BED. OR TEAM AT BEDSIDE. VSS. NO SIGNS OF ACUTE DISTRESS NOTED.
--- NOTE | 2018-09-04 20:15 | NUR ---
PT ARRIVED FROM OR. DR DAN AT BEDSIDE. ORDER TO KEEP BLOOD PRESSURE BELLOW 130 RECEIVED. ASSESSMENT DONE SEE FLOW SHEET. TITRATING NITRO AND CLEVIPREX. ICU MONITORS IN PLACE ALARMS SET AND VERIFIED. WILL CONTINUE TO MONITOR.
--- NOTE | 2018-09-04 21:58 | NUR ---
DR DAN INFORMED OF PT STATUS. PT COMPLAINS OF RLE PAIN 04/30. PULSES DOPPLERABLE. NO SWELLING OR FAUZIA. VSS. NO SIGNS OF ACUTE DISTRESS NOTED. NO NEW ORDERS RECEIVED. WILL CONTINUE TO MONITOR.
--- NOTE | 2018-09-04 23:01 | NUR ---
REASSESSMENT COMPLETE. VSS. NO SIGNS OF ACUTE DISTRESS NOTED. WILL CONTINUE TO MONITOR.
[2018-09-05] VITALS (61 sets, daily range): BP systolic 100–154; BP diastolic 30–90
--- NOTE | 2018-09-05 01:00 | NUR ---
CALL LIGHT ANSWERED. PT REQUESTING PAIN PILL. TEACHING PROVIDED. PT STATES SHE DOES NOT REMEMBER GETTING ONE AND INSISTS IT IS TIME FOR ANOTHER ONE. VSS. WILL CONTINUE TO MONITOR. REPOSITIONING AND DISTRACTION FAILED.
--- NOTE | 2018-09-05 01:50 | NUR ---
INCREASE IN HR NOTED. QUICKLY RESOLVED. VSS. WILL CONTINUE TO MONITOR.
--- NOTE | 2018-09-05 03:02 | NUR ---
REASSESSMENT DONE SEE FLOW SHEET. VSS.
--- NOTE | 2018-09-05 05:00 | NUR ---
FAMILY AT BEDSDIE. BED BATH GIVEN INDEPENDENTLY. VSS. WILL CONTINUE TO MONITOR.
[2018-09-05 06:22] LABS: HEMATOCRIT 30.6 % (36.0-48.0); MCH 28.2 pg (26.0-34.0); MCHC 32.7 g/dL (31.0-37.0); MCV 86.4 fL (80.0-100.0); MEAN PLATELET VOLUME 9.8 fL (7.4-10.4); RBC 3.54 10x6/uL (4.00-5.40); RDW 15.2 % (11.5-14.5); WBC 12.8 10x3/uL (4.8-10.8)
[2018-09-05 06:36] LABS: ANION GAP 11.4 mmol/L (8-16); CALCIUM 8.3 mg/dL (8.5-10.1); CARBON DIOXIDE 28.2 mmol/L (21.0-32.0); CREATININE - SERUM 0.9 mg/dL (0.6-1.3); MAGNESIUM - SERUM 2.2 mg/dL (1.8-2.4); POTASSIUM - SERUM 3.6 mmol/L (3.5-5.1)
--- NOTE | 2018-09-05 10:04 | NUR ---
Rehab Note- Acute Inpatient prescreen order received. The patient iss a good inpatient rehab patient when medically stable and ready for discharge from the acute hosptial. Will follow at this time. Thank you for this referral! Kamilla Funes RN Clinical Liaison, [facility] Rehab
--- NOTE | 2018-09-05 10:15 | NUR ---
Nutrition Follow Up: Chart reviewed. Diet: Regular PO Intake: 35% meal avg BM: 08/31/18 Labs reviewed Meds noted including Lasix, Reglan Rec continue current diet. Will send Boost BID. RD following.
--- NOTE | 2018-09-05 12:05 | NUR ---
Rehab Note- Visited with the patient, she is in agreeance to a short stay at [facility] Acute Inpatient Rehab. She is concerned that she has not had a BM since her acute hospital admit. Will follow at this time. Thank you for this referral! Henri Funes RN CLinical Liaison, [facility] Rehab
[2018-09-05] MEDS ORDERED: PLAVIX75 MG PO (14:48)
[2018-09-05] MEDS ORDERED: NORVASC10 MG PO (14:48)
[2018-09-05] MEDS ORDERED: HEMOCYTE PLUS C1 CAP PO (14:48)
--- NOTE | 2018-09-05 14:48 | MORECARE ---
CASE MANAGEMENT DISCHARGE SUMMARY PATIENT: SALAZAR TEJEDA UNIT: [id number] ADM DATE: 08/29/18 AGE: 78 : 38 SEX: F [facility] AUTHOR: LIEN,DOC PHYSICIAN: REFERRING PHYSICIAN: DIMITRI DAN MD DATE OF SERVICE: 09/05/18 Discharge Plan Patient Name: SALAZAR TEJEDA Facility: [facility]:[place] : 1940 Planned Disposition: Inpatient Rehab Anticipated Discharge Date: Discharge Date: Expected LOS: Initial Reviewer: [email or web address] Initial Review Date: 08/29/2018 Generated: 09/05/18 3:48 pm Comments DCP- Discharge Planning Updated by [email or web address]: Nguyen Long on 09/05/18 1:[address] CM received notice for eval for inpatient rehab. Rehab has evaluated patient and she is a good candidate. Patient is agreeing to go to rehab. Plan for inpatient rehab when medically stable. CM has left message with Kamilla to see if patient can be admitted over weekend. CM awaiting call back from Kamilla. CM will continue to follow and assist as needed with discharge planning / needs. DCP- Discharge Planning Updated by [email or web address]: Nguyen Long on 08/29/18 7:[address] Patient Name: SALAZAR TEJEDA Admission Status: Elective Accout number: [id number] Admission Date: 08-29-2018 : 1940 Admission Diagnosis: Attending: DIMITRI DAN Current LOS: 1 Anticipated DC Date: Planned Disposition: Home Primary Insurance: MEDICARE A & B Discharge Planning Comments: CM met with patient at bedside. Patient states she live at home alone and plans to return to her home upon discharge. Patient denies any discharge needs at this time. CM will continue to follow and assist as needed with discharge planning / needs. Crna: Nguyen Long DCPIA - Discharge Planning Initial Assessment Updated by [email or web address]: Nguyen Long on 08/29/18 7:59 pm * Is the patient Alert and Oriented? Yes * How many steps to enter\exit or inside your home? * PCP [facility]OT * Pharmacy [facility] - [facility] * Preadmission Environment Home Alone * ADLs Independent * Equipment None * List name and contact numbers for known caregivers / representatives who currently or will assist patient after discharge: HEIDI RUSSELL - DAUGHTER- [phone] * Verbal permission to speak to the caregivers and representatives has been obtained from the patient. N/A * Community resources currently utilized None * Additional services required to return to the preadmission environment? No * Can the patient safely return to the preadmission environment? Yes * Has this patient been hospitalized within the prior 30 days at any hospital? No Last DP export: 08/29/18 7:08 pm Patient Name: SALAZAR TEJEDA Page [id number] at 1448 All edits/amendments must be made on the electronic document DICTATION DATE: 09/05/181446 MICA BUILDER: ALEYDA 09/05/181446 RPT#: [id number] DC DATE: STATUS: ADM IN [facility] [address] [place] [address] END OF REPORT
[2018-09-05] MEDS ORDERED: LOTENSIN 10 MG10 MG PO (14:49)
[2018-09-05] MEDS ORDERED: HYDRALAZINE HCL25 MG PO (14:49)
[2018-09-05] MEDS ORDERED: NORCO-10 PO (14:50)
[2018-09-05] MEDS ORDERED: FLORAJEN3 CAPS460 MG PO (14:50)
[2018-09-05] MEDS ORDERED: COLACE100 MG PO (14:50)
[2018-09-05] MEDS ORDERED: K-DUR20 MEQ PO (15:13)
--- NOTE | 2018-09-05 15:15 | OP ---
PATIENT NAME: SALAZAR TEJEDA MEDICAL RECORD: [id number] :[birth year] LOCATION:D.CVI D.CV01 ADMISSION DATE:08/29/18 SURGEON: DIMITRI GRANDA MD DATE OF OPERATION: 09/04/2018 SURGEON: Dimitri Granda MD ANESTHESIA: General, Dr. Norman. OPERATION PERFORMED: Primary closure of false aneurysm, left groin. PREOPERATIVE DIAGNOSIS: False aneurysm, left groin. POSTOPERATIVE DIAGNOSIS: False aneurysm, left groin. INDICATION FOR OPERATION: False aneurysm, left groin. FINDINGS OF THE OPERATION: The proximal common femoral artery at the inguinal ligament had a false aneurysm without a lot of hematoma. ESTIMATED BLOOD LOSS: Less than 20 mL. DESCRIPTION OF PROCEDURE: After informed consent, adequate preoperative medication evaluation, the patient was brought to the operating room, placed on the table in supine position. After induction of general anesthesia and application of appropriate monitoring devices, the left groin was prepped and draped in sterile field, utilizing Betadine scrub, alcohol, and Betadine solution. A Betadine-impregnated drape was also used. An oblique incision was made at the inguinal ligament and dissection carried down to the femoral artery. The false aneurysm was identified and proximal control was provided utilizing a Kitner dissector. The distal artery was dissected and a Kitner was used for compression as well. The aneurysm was removed and 2 interrupted 6-0 Prolene sutures were used to close the femoral artery. The patient did not require heparin or protamine. The wound was irrigated with copious amounts of antibiotic solution and normal saline. The dissection of the artery was carried distally without any other lesions noted. The wound was again irrigated with copious amounts of antibiotic solution and normal saline. There was no active bleeding. Instrument count and sponge counts were correct times 2. The wound was closed in layers utilizing 3-0 Vicryl on the deep subcutaneous tissue, 3-0 Vicryl on the superficial subcutaneous tissue and 5-0 subcuticular Monocryl on the skin. Sterile dressings were applied. The patient tolerated the procedure well and was transferred back to the CV ICU in satisfactory condition. TRANSINT:[id number] Voice Confirmation ID: [id number] DOCUMENT ID: [id number] DIMITRI GRANDA MD at 1515 CC: [id number] DICTATION DATE: 09/04/182028 NUCLEAR MEDICINE MEDICAL DIRECTOR: 09/05/18 0006 ADM IN [facility] [address] [facility] [place] [address]
--- NOTE | 2018-09-05 18:07 | MORECARE ---
CASE MANAGEMENT DISCHARGE SUMMARY PATIENT: SALAZAR TEJEDA UNIT: [id number] ADM DATE: 08/29/18 AGE: 78 : 38 SEX: F [facility] AUTHOR: PATTI EMMANUEL PHYSICIAN: REFERRING PHYSICIAN: DIMITRI DAN MD DATE OF SERVICE: 09/05/18 Discharge Plan Patient Name: SALAZAR TEJEDA Facility: [facility]:[place] : 1940 Planned Disposition: Inpatient Rehab Anticipated Discharge Date: Discharge Date: Expected LOS: Initial Reviewer: [email or web address] Initial Review Date: 08/29/2018 Generated: 09/05/18 7:06 pm Comments DCP- Discharge Planning Updated by [email or web address]: Nguyen Long on 09/05/18 5:[address] Patient Name: SALAZAR TEJEDA Encounter No: [id number] : 1940 Primary Insurance: MEDICARE A & B Anticipated DC Date: Planned Disposition: Inpatient Rehab External Planned Provider: : [facility] IMM EXPLAINED AND SERVED 09/05/18 @ 1750 DCP follow-up note: Patient and family in agreement with discharge plan. No changes to plan. Case management will follow and assist as needed. Nguyen Long DCP- Discharge Planning Updated by [email or web address]: Nguyen Long on 09/05/18 1:[address] CM received notice for eval for inpatient rehab. Rehab has evaluated patient and she is a good candidate. Patient is agreeing to go to rehab. Plan for inpatient rehab when medically stable. CM has left message with Kamilla to see if patient can be admitted over weekend. CM awaiting call back from Kamilla. CM will continue to follow and assist as needed with discharge planning / needs. DCP- Discharge Planning Updated by [email or web address]: Nguyen Long on 08/29/18 7:[address] Patient Name: SALAZAR TEJEDA Admission Status: Elective Accout number: [id number] Admission Date: 08-29-2018 : 1940 Admission Diagnosis: Attending: DIMITRI DAN Current LOS: 1 Anticipated DC Date: Planned Disposition: Home Primary Insurance: MEDICARE A & B Discharge Planning Comments: CM met with patient at bedside. Patient states she live at home alone and plans to return to her home upon discharge. Patient denies any discharge needs at this time. CM will continue to follow and assist as needed with discharge planning / needs. Sandblasting Supervisor: Nguyen ROJASA - Discharge Planning Initial Assessment Updated by [email or web address]: Nguyen Long on 08/29/18 7:59 pm * Is the patient Alert and Oriented? Yes * How many steps to enter\exit or inside your home? * PCP P[facility]OT * Pharmacy [facility] - [facility] * Preadmission Environment Home Alone * ADLs Independent * Equipment None * List name and contact numbers for known caregivers / representatives who currently or will assist patient after discharge: HEIDI RUSSELL - DAUGHTER- [phone] * Verbal permission to speak to the caregivers and representatives has been obtained from the patient. N/A * Community resources currently utilized None * Additional services required to return to the preadmission environment? No * Can the patient safely return to the preadmission environment? Yes * Has this patient been hospitalized within the prior 30 days at any hospital? No Coverage Notice Reviewer: [email or web address] - Nguyen Long Notice Issued Date-Time: 09/05/2018 17:50 Notice Type: IM Discharge Notice Notice Delivered To: Patient Relationship to Patient: Self Medical Language Specialist Name: Delivery Method: HAND - Hand Delivered Vannessa Days: Prior Verbal Notification: Recipient Understood Notice: Yes Recipient Signature: Yes Med Rec Note Co-signed by Attending: Coverage Notice Comment: Last DP export: 09/05/18 1:48 p Patient Name: SALAZAR TEJEDA Page [id number] at 1807 All edits/amendments must be made on the electronic document DICTATION DATE: 09/05/181805 NURSE AIDE EVALUATOR: ALEYDA 09/05/181805 RPT#: [id number] [place] DATE: STATUS: ADM IN [facility] [address] [place] [address] END OF REPORT
--- NOTE | 2018-09-05 18:10 | NUR ---
1715: L SUBCLAVIAN DOUBLE LUMEN PAT'Patricia. 1740: REPORT CALLED TO REHAB. 1800: TO ROOM 1115 VIA WHEELCHAIR.
--- NOTE | 2018-09-08 10:30 | MORECARE ---
CASE MANAGEMENT DISCHARGE SUMMARY PATIENT: SALAZAR TEJEDA UNIT: [id number] ADM DATE: 08/29/18 AGE: 78 : 38 SEX: F [facility] AUTHOR: PATTI EMMANUEL PHYSICIAN: REFERRING PHYSICIAN: DIMITRI DAN MD DATE OF SERVICE: 09/08/18 Discharge Plan Patient Name: SLAAZAR TEJEDA Facility: [facility]:[place] : 1940 Planned Disposition: Inpatient Rehab Anticipated Discharge Date: Discharge Date: 09/05/2018 Expected LOS: Initial Reviewer: [email or web address] Initial Review Date: 08/29/2018 Generated: 09/08/18 11:29 am Comments DCP- Discharge Planning Updated by [email or web address]: Nguyen Long on 09/05/18 5:[address] Patient Name: SALAZAR TEJEDA Encounter No: [id number] : 1940 Primary Insurance: MEDICARE A & B Anticipated DC Date: Planned Disposition: Inpatient Rehab External Planned Provider: : [facility] IMM EXPLAINED AND SERVED 09/05/18 @ 1750 DCP follow-up note: Patient and family in agreement with discharge plan. No changes to plan. Case management will follow and assist as needed. Nguyen Long DCP- Discharge Planning Updated by [email or web address]: Nguyen Long on 09/05/18 1:[address] CM received notice for eval for inpatient rehab. Rehab has evaluated patient and she is a good candidate. Patient is agreeing to go to rehab. Plan for inpatient rehab when medically stable. CM has left message with Kamilla to see if patient can be admitted over weekend. CM awaiting call back from Kamilla. CM will continue to follow and assist as needed with discharge planning / needs. DCP- Discharge Planning Updated by [email or web address]: Nguyen Long on 08/29/18 7:[address] Patient Name: SALAZAR TEJEDA Admission Status: Elective Accout number: [id number] Admission Date: 08-29-2018 : 1940 Admission Diagnosis: Attending: DIMITRI DAN Current LOS: 1 Anticipated DC Date: Planned Disposition: Home Primary Insurance: MEDICARE A & B Discharge Planning Comments: CM met with patient at bedside. Patient states she live at home alone and plans to return to her home upon discharge. Patient denies any discharge needs at this time. CM will continue to follow and assist as needed with discharge planning / needs. Hand Drawer In: Nguyenmarleen Long DCPIA - Discharge Planning Initial Assessment Updated by [id number]: Nguyen Long on 08/29/18 7:59 pm * Is the patient Alert and Oriented? Yes * How many steps to enter\exit or inside your home? * PCP [facility] * Pharmacy [facility] - [facility] * Preadmission Environment Home Alone * ADLs Independent * Equipment None * List name and contact numbers for known caregivers / representatives who currently or will assist patient after discharge: HEIDI RUSSELL - DAUGHTER- [phone] * Verbal permission to speak to the caregivers and representatives has been obtained from the patient. N/A * Community resources currently utilized None * Additional services required to return to the preadmission environment? No * Can the patient safely return to the preadmission environment? Yes * Has this patient been hospitalized within the prior 30 days at any hospital? No Coverage Notice Reviewer: [id number] - Nguyen Ethan Notice Issued Date-Time: 09/05/2018 17:50 Notice Type: IM Discharge Notice Notice Delivered To: Patient Relationship to Patient: Self Government Auditor Name: Delivery Method: HAND - Hand Delivered Vannessa Days: Prior Verbal Notification: Recipient Understood Notice: Yes Recipient Signature: Yes Med Rec Note Co-signed by Attending: Coverage Notice Comment: Last DP export: 09/05/18 5:07 p Patient Name: SALAZAR TEJEDA Page [id number] at 1030 All edits/amendments must be made on the electronic document DICTATION DATE: 09/08/18 1029 OVERHEAD CLEANER MAINTAINER: ALEYDA 09/08/18 1029 RPT#: [id number] DC DATE:09/05/18 STATUS: DIS IN [facility] [address] [place] [address] END OF REPORT
== END 2018-09-05 18:02 | DRG 268 ==
LOC: D.CVICU 08-29 05:00 → D.SDCHOLD 08-29 05:00 → D.CLR 08-29 09:39 → D.CVICU 08-29 09:43
PROVIDERS: General Practice; Thoracic Surgery (Cardiothoracic Vascular Surgery); ADMIT Internal Medicine Cardiovascular Disease
PROC: 04V03DZ Restriction of Abdominal Aorta with Intraluminal Device, Percutaneous Approach (ICD-10-PCS; principal; 2018-08-29 07:30)
PROC: 047L3ZZ Dilation of Left Femoral Artery, Percutaneous Approach (ICD-10-PCS; 2018-09-03)
PROC: 047Q3ZZ Dilation of Left Anterior Tibial Artery, Percutaneous Approach (ICD-10-PCS; 2018-09-03)
PROC: 047W3ZZ Dilation of Left Foot Artery, Percutaneous Approach (ICD-10-PCS; 2018-09-03)
PROC: 04QL0ZZ Repair Left Femoral Artery, Open Approach (ICD-10-PCS; 2018-09-04)
DX: I71.4 Abdominal aortic aneurysm, without rupture (principal); K66.1 Hemoperitoneum; G72.81 Critical illness myopathy; D62 Acute posthemorrhagic anemia; I10 Essential (primary) hypertension; J44.9 Chronic obstructive pulmonary disease, unspecified; M25.572 Pain in left ankle and joints of left foot; I77.1 Stricture of artery; I72.4 Aneurysm of artery of lower extremity; I95.9 Hypotension, unspecified

== ENCOUNTER 2018-09-05 18:06 | Inpatient (IN) | payer MEDICARE, BC ==
[~2018-09-05] VITALS: Ht 157.5 cm; Wt 50.3 kg
[~2018-09-05 18:06] MED LIST changes: +AMLOD/BENAZEPRIL; +CENTRUM SILVER1 EAC3 PO; +COLACE100 MG PO; +FLORAJEN3 CAPS460 MG PO; +HEMOCYTE PLUS C1 CAP PO; +HYDRALAZINE HCL25 MG PO; +K-DUR20 MEQ PO; +LOTENSIN 10 MG10 MG PO; +LOTREL 5/10 MG1 CAP; +MAGNESIUM OXID250 MG PO; +NORCO-10 PO; +NORVASC10 MG PO; +PLAVIX75 MG PO; +POTASSIUM99 M1 PO; +VITAMIN D31000 UNIT PO
[2018-09-05 21:06] VITALS: BP 130/52
[2018-09-05 22:56] VITALS: BP 130/52
[2018-09-06 06:08] LABS: BASOPHILS 0.3 % (0-2); EOSINOPHILS 1.3 % (0-7); HEMATOCRIT 31.8 % (36.0-48.0); HEMOGLOBIN 10.3 g/dL (12-16); IMMATURE GRANULOCYTES 0.8 % (0-5); LYMPHOCYTES 13.3 % (15-50); MCH 28.4 pg (26.0-34.0); MCHC 32.4 g/dL (31.0-37.0); MCV 87.6 fL (80.0-100.0); MONOCYTES 16.1 % (2-11); NEUTROPHILS 68.2 % (40-80); RBC 3.63 10x6/uL (4.00-5.40); RDW 15.4 % (11.5-14.5); WBC 11.9 10x3/uL (4.8-10.8)
[2018-09-06 06:22] LABS: CALCIUM 8.4 mg/dL (8.5-10.1); CARBON DIOXIDE 29.4 mmol/L (21.0-32.0); CHLORIDE - SERUM 104 mmol/L (98-107); GLUCOSE 94 mg/dL (74-106); POTASSIUM - SERUM 3.5 mmol/L (3.5-5.1); SODIUM 141 mmol/L (136-145)
[2018-09-06 06:23] LABS: PLATELET COUNT 305 10x3/uL (130-400)
[2018-09-06 06:33] LABS: CALC OSMOLALITY 281 mosm/kg (275-300); CREATININE - SERUM 0.6 mg/dL (0.6-1.3); UREA NITROGEN 14 mg/dL (7-18); eGFR NON AFRICAN AMERICAN > 90 mL/min (90-120)
[2018-09-06 08:00] VITALS: BP 122/50
[2018-09-06 09:58] VITALS: Ht 157.5 cm; Wt 50.3 kg
[2018-09-07 09:14] VITALS: BP 156/52
[2018-09-07 17:57] VITALS: BP 142/50
[2018-09-08 06:49] LABS: BASOPHILS 0.3 % (0-2); EOSINOPHILS 1.1 % (0-7); HEMATOCRIT 34.6 % (36.0-48.0); HEMOGLOBIN 11.1 g/dL (12-16); IMMATURE GRANULOCYTES 0.5 % (0-5); MCH 28.5 pg (26.0-34.0); MCHC 32.1 g/dL (31.0-37.0); MCV 88.9 fL (80.0-100.0); MEAN PLATELET VOLUME 9.7 fL (7.4-10.4); MONOCYTES 14.4 % (2-11); NEUTROPHILS 73.7 % (40-80); RBC 3.89 10x6/uL (4.00-5.40); RDW 15.6 % (11.5-14.5); WBC 12.4 10x3/uL (4.8-10.8)
[2018-09-08 06:51] LABS: CALC OSMOLALITY 277 mosm/kg (275-300); CALCIUM 8.6 mg/dL (8.5-10.1); CHLORIDE - SERUM 103 mmol/L (98-107); CREATININE - SERUM 0.6 mg/dL (0.6-1.3); GLUCOSE 102 mg/dL (74-106); POTASSIUM - SERUM 3.8 mmol/L (3.5-5.1); SODIUM 139 mmol/L (136-145); UREA NITROGEN 12 mg/dL (7-18); eGFR NON AFRICAN AMERICAN > 90 mL/min (90-120)
[2018-09-08 06:53] LABS: PLATELET COUNT 415 10x3/uL (130-400)
[2018-09-08 08:00] VITALS: BP 118/65
[2018-09-08 19:58] VITALS: BP 145/55
[2018-09-09 08:30] VITALS: BP 168/60
[2018-09-09 19:58] VITALS: BP 147/60
[2018-09-10 08:00] VITALS: BP 122/62
[2018-09-10 08:09] LABS: BASOPHILS 0.5 % (0-2); EOSINOPHILS 1.3 % (0-7); HEMATOCRIT 34.6 % (36.0-48.0); HEMOGLOBIN 11.3 g/dL (12-16); LYMPHOCYTES 13.4 % (15-50); MCH 28.8 pg (26.0-34.0); MCHC 32.7 g/dL (31.0-37.0); MCV 88.3 fL (80.0-100.0); MEAN PLATELET VOLUME 10.1 fL (7.4-10.4); MONOCYTES 12.3 % (2-11); NEUTROPHILS 71.5 % (40-80); PLATELET COUNT 473 10x3/uL (130-400); RBC 3.92 10x6/uL (4.00-5.40); RDW 15.5 % (11.5-14.5); WBC 11.5 10x3/uL (4.8-10.8)
[2018-09-10 08:12] LABS: ANION GAP 14.7 mmol/L (8-16); CALCIUM 9.2 mg/dL (8.5-10.1); CARBON DIOXIDE 25.7 mmol/L (21.0-32.0); CREATININE - SERUM 0.8 mg/dL (0.6-1.3); POTASSIUM - SERUM 4.4 mmol/L (3.5-5.1)
[2018-09-10] MEDS ORDERED: MIRALAX17 GM PO (15:30)
[2018-09-10] MEDS ORDERED: HEMOCYTE PLUS C1 CAP PO (15:30)
[2018-09-10] MEDS ORDERED: DULCOLAX5 MG PO (15:30)
[2018-09-10] MEDS ORDERED: K-DUR20 MEQ PO (15:30)
[2018-09-10] MEDS ORDERED: COLACE100 MG PO (15:30)
[2018-09-10] MEDS ORDERED: NORVASC10 MG PO (15:30)
[2018-09-10] MEDS ORDERED: DULCOLAX10 MG/SUPP RC (15:30)
[2018-09-10] MEDS ORDERED: PLAVIX75 MG PO (15:30)
[2018-09-10] MEDS ORDERED: LOTENSIN 10 MG10 MG PO (15:30)
[2018-09-10] MEDS ORDERED: FLORAJEN3 CAPS460 MG PO (15:30)
[2018-09-11 04:51] VITALS: BP 140/50
[2018-09-11 08:36] VITALS: BP 142/57
--- NOTE | 2018-09-17 10:28 | RHP ---
PATIENT: SALAZAR TEJEDA MEDICAL RECORD: [id number] ACCOUNT: [id number] LOCATION:[facility] : [birth year] ADMISSION DATE: 09/05/18 REHABILITATION HISTORY AND PHYSICAL EXAMINATION POST ADMISSION PHYSICIAN EXAMINATION DATE OF ADMISSION: 09/05/2018 ADMITTING DIAGNOSIS: Critical illness myopathy. HISTORY OF PRESENT ILLNESS: The patient is an 78-year-old female patient admitted to the inpatient rehab with a diagnosis of critical illness myopathy. The patient was admitted to the acute hospital for an endovascular stent repair of a complex aortic aneurysm on 08/29/[address] Granda. Postoperatively, she developed some hypotension and anemia. H&H were 6.9 and 21.2, requiring 3 units of blood. She developed pain in her left ankle and left leg. She had a Doppler flow; however, she continued to have pain and could not walk. She underwent a CT angiogram of her abdomen, pelvis and lower extremity, found to have good position of her endograft with some preperitoneal hematoma noticed. She had no extravasation from the iliac and femoral vessels. She had good blood flow to her left popliteal artery. Interventional radiology was able to cross the chronic total occlusion and perform an atherectomy and angioplasty of her superficial femoral artery, popliteal artery and anterior tibial artery. Postop, she did well until late on day #1 from her procedure, she developed pain in her left groin and ultrasound demonstrated a small false aneurysm. She underwent surgical repair of this on 09/04/2018. She has got a past medical history of hypertension, coronary artery disease, carotid stenosis, COPD. She is on supplemental O2. Telemetry has proximal muscle weakness. She is deconditioned secondary to extensive hospitalization and some postop complications. Her medications have needed to be adjusted. She has got debility, impaired mobility, risk for falls, pain and self-care deficit. These are all barriers to her discharge home. She is now able to ambulate with less pain in her lower extremity and groin area. She lives at home alone and was independent with her mobility and ADLs prior to this. She is currently set up for mod assist in her ADLs and mod assist with her mobility. 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 She plans to return home and return back to work as quickly as possible and back to her prior level of functioning if able to. COMORBIDITIES: Include abdominal aortic aneurysm, COPD, hypertension, coronary artery disease, ankle pain, lower limb ischemia, false aneurysm. PAST MEDICAL HISTORY: Significant for hypertension, coronary artery disease, peripheral vascular disease, carotid stenosis, abdominal aortic aneurysm, and COPD. PAST SURGICAL HISTORY: Includes hysterectomy and hemorrhoidectomy. ALLERGIES: No known drug allergies. CURRENT MEDICATIONS: Include polyethylene glycol 17 grams in 8 ounces of water daily; potassium 20 mEq daily; Floranex 460 mg daily; multivitamin daily; Plavix 75 mg daily; vitamin D 1000 units daily; Wellbutrin 150 mg daily; Lotensin 40 mg daily; aspirin chewable 81 mg daily; Norvasc 10 mg daily; she is on Dulcolax 5 mg b.i.d. p.r.n. constipation; [place] 10/325 one tab every 4 hours p.r.n.; HISTORY AND PHYSICAL [id number] SALAZAR TEJEDA Apresoline 25 mg as needed for elevated blood pressure and Colace 100 mg b.i.d. HABITS: No current alcohol or tobacco use. FAMILY HISTORY: Noncontributory. SOCIAL HISTORY: The patient hopes to return back home and get back to her prior level of functioning. REVIEW OF SYSTEMS: GENERAL: Does complain of some weakness and fatigue. HEENT: Denies cold, cough, or congestion. CARDIOVASCULAR: Denies chest pain. OBJECTIVE: VITAL SIGNS: Stable. Her temperature is 98.4, pulse of 83, respirations 18, blood pressure 122/50 and sats 97%. GENERAL: A thin female, in no acute distress, alert upon exam. HEENT: Normocephalic and atraumatic. Mucosa moist. NECK: Supple. No lymphadenopathy. LUNGS: Clear at this time. HEART: Has a regular rate and rhythm. No murmurs, rubs or gallops. ABDOMEN: Benign. EXTREMITIES: No clubbing, cyanosis or edema. NEUROLOGIC: She is mostly intact except for a weakness. LABORATORY DATA: White count is 11.9, H&H 10.3 and 31.8 and platelet count is 305. Her sodium is 141, potassium 3.5, BUN and creatinine of 14 and 0.6 and blood sugar is noted to be 94. ASSESSMENT: This is an 78-year-old female patient admitted to rehab with a working diagnosis of critical illness myopathy. The patient has potential to make improvement. We instituted the following multidisciplinary therapies include, but not limited to physical, occupational, respiratory, speech, nutritional services, prosthetics and orthotics. Given her complex medical condition and risk for more complications, rehabilitation services cannot be provided at a low level of care such as a skilled nurse facility. PLAN: 1. Admit to [facility] for intensive inpatient therapy to include the following disciplines: A. Physical therapy to improve gait, all transfer skills and bed mobility to a modified independent level. B. Occupational therapy to a modified independent level. C. Case management to assist with discharge planning and placement options. D. Nutrition to assist with nutritional needs. E. Rehabilitation nursing to assist in monitoring the patient's underlying medical conditions and to assist with any type of bowel or bladder management. 2. The patient's current medication and medical care will be continued. 3. The patient will be placed on standard fall precautions. 4. The patient's estimated length of stay is approximately 7-10 days. 5. We will discuss this patient during care team staff meeting this week. TRANSINT:[id number] Voice Confirmation ID: [id number] DOCUMENT ID: [id number] HISTORY AND PHYSICAL [id number] SALAZAR TEJEDA notes whether there has been none or any medical/functional change since admission: - No change since preadmission screen. LATONYA attests patient continues to be appropriate for IRF: - Continues to be appropriate. NICOLE RENE MD at 1028 CC: [id number] DICTATION DATE: 09/06/18 1259 MAINTAINER CENTRAL OFFICE: 09/06/18 1352 DIS IN 09/11/18 [place] [id number]
== END 2018-09-11 12:33 | disposition home or self-care (01) | DRG 91 ==
LOC: D.REHAB 18:06
PROVIDERS: ADMIT Emergency Medicine
DX: G72.81 Critical illness myopathy (principal); K66.1 Hemoperitoneum; D62 Acute posthemorrhagic anemia; I71.4 Abdominal aortic aneurysm, without rupture; J44.9 Chronic obstructive pulmonary disease, unspecified; I10 Essential (primary) hypertension; I25.10 Atherosclerotic heart disease of native coronary artery without angina pectoris; M25.572 Pain in left ankle and joints of left foot; I72.8 Aneurysm of other specified arteries

== ENCOUNTER 2018-10-06 14:01 | Emergency (ER) | payer MEDICARE, BC ==
[~2018-10-06] VITALS: Ht 157.5 cm; Wt 47.6 kg
[~2018-10-06 14:01] MED LIST changes: +DULCOLAX10 MG/SUPP RC; +DULCOLAX5 MG PO; +HYDROCODON-ACE1 EA10 PO; +MIRALAX17 GM PO
[2018-10-06 14:07] VITALS: Ht 157.5 cm; Wt 47.6 kg
[2018-10-06] MEDS ORDERED: COREG12.5 MG PO (16:43)
[2018-10-06 18:19] VITALS: BP 162/64
== END 2018-10-06 18:20 | disposition home or self-care (01) ==
LOC: D.ER 14:01
DX: I73.9 Peripheral vascular disease, unspecified (principal); I10 Essential (primary) hypertension; I72.4 Aneurysm of artery of lower extremity

== ENCOUNTER → 2019-01-07 13:00 | Outpatient (CLI) | payer MEDICARE, BC ==
[~2019-01-07 13:00] MED LIST changes: +COREG12.5 MG PO; +PREDNISONE20 MG PO; +VIBRAMYCIN 100100 MG PO
== END | disposition home or self-care (01) ==
LOC: D.LAB 13:00 → D.RAD 13:00
PROVIDERS: ATTEND Internal Medicine Pulmonary Disease
DX: J44.9 Chronic obstructive pulmonary disease, unspecified (principal)

== ENCOUNTER 2019-01-07 14:35 | Emergency (ER) | payer MEDICARE, BC ==
[~2019-01-07] VITALS: Ht 157.5 cm; Wt 50.0 kg
[~2019-01-07 14:35] MED LIST changes: -PREDNISONE20 MG PO; -VIBRAMYCIN 100100 MG PO
[2019-01-07 14:51] VITALS: Ht 157.5 cm; Wt 50.0 kg
[2019-01-07 17:51] LABS: BASOPHILS 1.1 % (0-2); EOSINOPHILS 2.7 % (0-7); HEMATOCRIT 40.8 % (36.0-48.0); HEMOGLOBIN 13.4 g/dL (12-16); IMMATURE GRANULOCYTES 0.2 % (0-5); LYMPHOCYTES 25.6 % (15-50); MCH 28.5 pg (26.0-34.0); MCHC 32.8 g/dL (31.0-37.0); MCV 86.6 fL (80.0-100.0); MEAN PLATELET VOLUME 10.8 fL (7.4-10.4); NEUTROPHILS 54.4 % (40-80); RBC 4.71 10x6/uL (4.00-5.40); WBC 8.1 10x3/uL (4.8-10.8)
[2019-01-07 17:52] LABS: PLATELET COUNT 234 10x3/uL (130-400)
[2019-01-07 17:58] LABS: APTT 40.2 SECONDS (22.8-39.4); INR 1.06 (0.85-1.17); PROTIME 13.3 SECONDS (11.6-15.0)
[2019-01-07 18:05] LABS: ALBUMIN 3.9 g/dL (3.4-5.0); ALKALINE PHOSPHATASE 85 U/L (46-116); ALT (SGPT) 29 U/L (10-68); BILIRUBIN - TOTAL 0.26 mg/dL (0.2-1.3); CALC OSMOLALITY 284 mosm/kg (275-300); CALCIUM 9.3 mg/dL (8.5-10.1); CHLORIDE - SERUM 103 mmol/L (98-107); CREATININE - SERUM 1.2 mg/dL (0.6-1.3); GLUCOSE 102 mg/dL (74-106); POTASSIUM - SERUM 4.2 mmol/L (3.5-5.1); PROTEIN - SERUM 8.2 g/dL (6.4-8.2); SODIUM 139 mmol/L (136-145); UREA NITROGEN 32 mg/dL (7-18); eGFR NON AFRICAN AMERICAN 46 mL/min (90-120)
[2019-01-07 18:26] LABS: CKMB 1.6 U/L (0.0-3.6); CREATINE KINASE 55 UL (21-215); PRO BNP 92 pg/mL (0-450)
[2019-01-07 18:28] LABS: TROPONIN-I < 0.017 ng/mL (0.000-0.060)
[2019-01-07] MEDS ORDERED: PREDNISONE20 MG PO (21:42)
[2019-01-07] MEDS ORDERED: VIBRAMYCIN 100100 MG PO (21:42)
[2019-01-07 22:30] VITALS: BP 147/52
== END 2019-01-07 22:30 | disposition home or self-care (01) ==
LOC: D.ER 14:35
PROVIDERS: Family Medicine
DX: J44.1 Chronic obstructive pulmonary disease with (acute) exacerbation (principal); N28.9 Disorder of kidney and ureter, unspecified

== ENCOUNTER → 2019-01-12 10:16 | Outpatient (CLI) | payer MEDICARE, BC ==
[2019-01-07 14:51] VITALS: BMI 20.1
[~2019-01-12 10:16] MED LIST changes: +PREDNISONE20 MG PO; +VIBRAMYCIN 100100 MG PO
== END | disposition home or self-care (01) ==
LOC: D.RT 10:16
PROVIDERS: ATTEND Internal Medicine Pulmonary Disease
DX: J44.9 Chronic obstructive pulmonary disease, unspecified (principal)

== ENCOUNTER → 2019-08-17 11:42 | Outpatient (CLI) | payer MEDICARE, BC ==
[2019-01-07 14:51] VITALS: BMI 20.1
== END | disposition home or self-care (01) ==
LOC: D.RT 11:42
PROVIDERS: ATTEND Internal Medicine Pulmonary Disease
DX: J44.9 Chronic obstructive pulmonary disease, unspecified (principal)

== ENCOUNTER → 2019-12-10 10:55 | Outpatient (CLI) | payer MEDICARE, BC ==
[2019-01-07 14:51] VITALS: BMI 20.1
== END | disposition home or self-care (01) ==
LOC: D.CT 09-18 10:30
PROVIDERS: ATTEND Internal Medicine Cardiovascular Disease
DX: I71.4 Abdominal aortic aneurysm, without rupture (principal)

== ENCOUNTER → 2020-12-22 09:37 | Outpatient (CLI) | payer MEDICARE, BC ==
[2019-01-07 14:51] VITALS: BMI 20.1
== END | disposition home or self-care (01) ==
LOC: D.CT 09:30
PROVIDERS: ATTEND Thoracic Surgery (Cardiothoracic Vascular Surgery)
DX: I71.4 Abdominal aortic aneurysm, without rupture (principal)